=== PATIENT | male | born 1975 | race Caucasian/White ===

== ENCOUNTER 2024-02-07 21:08 | Emergency (ER) | payer BC ==
[~2024-02-07] VITALS: Ht 185.4 cm; Wt 115.7 kg
[2024-02-07 22:22] VITALS: BP_SYST 134; PULSE 83; RESP 18; TEMP 98.6; O2SAT 98
[2024-02-08 01:25] LABS: BASOPHILS % (AUTO) 0.5 % (0.0-2.0); EOSINOPHILS # (AUTO) 0.3 K/uL (0.0-0.4); EOSINOPHILS % (AUTO) 3.6 % (0.0-4.0); HEMATOCRIT 43.9 % (36-54); HEMOGLOBIN 15.3 g/dL (14.0-18.0); LYMPHOCYTES # (AUTO) 2.5 K/uL (1.0-5.5); MEAN CORPUSCULAR HEMOGLOBIN 33 pg (27-31); MEAN CORPUSCULAR HGB CONC 35 % (32-36); MEAN CORPUSCULAR VOLUME 93 fL (79.0-98.0); MONOCYTES # (AUTO) 0.9 K/uL (0.0-1.0); MONOCYTES % (AUTO) 10.9 % (1.7-9.3); NEUTROPHILS # (AUTO) 4.3 K/uL (1.8-7.7); PLATELET COUNT (AUTO) 143 K/uL (130-430); RED BLOOD CELL COUNT(AUTO) 4.72 MIL/uL (4.2-6.2); RED CELL DISTRIBUTION WIDTH 13.4 % (9.0-15.0); WHITE BLOOD COUNT (AUTO) 7.9 K/uL (4.8-10.8)
[2024-02-08 01:41] LABS: ALBUMIN 3.7 g/dL (3.4-4.8); BILIRUBIN,DIRECT 0.2 mg/dL (0.0-0.3); CALCIUM 8.9 mg/dL (8.4-11.0); CREATININE 0.8 mg/dL (0.55-1.30); POTASSIUM 4.3 mmol/L (3.5-5.1); TOTAL BILIRUBIN 1.1 mg/dL (0.0-1.0); TOTAL PROTEIN, SERUM 7.2 g/dL (6.4-8.3)
== END 2024-02-08 02:29 | disposition home or self-care (01) ==
LOC: SED 21:08
DX: E13.42 Other specified diabetes mellitus with diabetic polyneuropathy (principal); R20.2 Paresthesia of skin; I48.91 Unspecified atrial fibrillation
CPT/HCPCS: 36415; 80048; 80076; 83735; 85025; 99283